=== PATIENT | male | born 1930 | race Caucasian/White ===

== ENCOUNTER 2017-09-14 09:25 | Emergency (ER) | payer OTHER, MEDICARE ==
[~2017-09-14] VITALS: Ht 165.1 cm; Wt 71.5 kg
[~2017-09-14 09:25] MED LIST: ALLOPURINOL100 MG PO; ASPIR 8181 M1 PO; IMODIUM A-1 MG/7.5 M PO; LABETALOL HCL200 MG PO; MAGNESIUM OXID500 MG PO; MULTIVITAMIN1 EAC2 PO; SIMVASTATIN10 MG PO; VITAMIN B12-FO1 EACH PO
[2017-09-14] MEDS ORDERED: FLEXERIL5 MG PO (12:22)
[2017-09-14 12:31] VITALS: BP 142/68
== END 2017-09-14 12:32 | disposition home or self-care (01) ==
LOC: EME 09:25
DX: M79.604 Pain in right leg (principal); M62.838 Other muscle spasm; I10 Essential (primary) hypertension; E78.5 Hyperlipidemia, unspecified; Z87.442 Personal history of urinary calculi
CPT/HCPCS: 93971; 99281; 99284